=== PATIENT | female | born 1970 ===

== ENCOUNTER 2024-04-29 10:08 | Observation (INO) ==
[2024-04-29] MEDS ORDERED: oxyCODONE SR 10 mg TAB ONE (12:12)
[2024-04-29] MEDS ORDERED: Clindamycin 900 MG/50 **NS BAG 900 MG/50 ML BAG ONE (12:13)
[2024-04-29] MEDS ORDERED: Scopolamine 1 mg/72hr PATCH ONE (12:13)
[2024-04-29] MEDS ORDERED: Ondansetron 4 mg VIAL 2 MG/ML 2 ml VIAL ONE (12:13)
[2024-04-29 12:18] LABS: ABS Basophils 0.1 10^3/uL (0.0-0.1); ABS Eosinophils 0.1 10^3/uL (0.0-0.5); ABS Lymphocytes 1.8 10^3/uL (1.0-4.8); ABS Monocytes 0.6 10^3/uL (0.0-0.9); ABS Neutrophils 5.2 10^3/uL (1.5-7.6); Eosinophil % 0.8 %; Hematocrit 42.6 % (35-45); Hemoglobin 14.6 g/dL (11.5-14.3); Lymphocyte % 22.7 %; Mean Corpuscular Hemoglobin 29.2 pg (27-33); Mean Corpuscular Hgb Conc 34.2 g/dL (31-36); Mean Corpuscular Volume 85.3 fL (80-97); Mean Platelet Volume 8.8 fL (7.5-11.2); Platelet Count 305 10^3/uL (150-450); Red Blood Count 4.99 10^6/uL (3.63-4.92); Red Cell Distribution Width 13.9 % (12-17); White Blood Count 7.8 10^3/uL (3.8-11.8)
[2024-04-29 12:40] LABS: Anion Gap 6 mmol/L (2-16); Blood Urea Nitrogen 12 mg/dL (6-24); CO2 Carbon Dioxide 25 mmol/L (22-32); Calcium 9.1 mg/dL (8.6-10.3); Chloride 107 mmol/L (101-111); Creatinine, Serum 0.68 mg/dL (0.51-0.95); Glucose 84 mg/dL (70-100); Potassium 4.1 mmol/L (3.5-5.0); Sodium 138 mmol/L (135-145); eGFR CKD-EPI 102.8 (>60)
[2024-04-29 12:47] LABS: HCG Pregnancy < 0.60 mIU/mL
[2024-04-29] MEDS ORDERED: Iohexol 350 (CONTRAST) 100 ML PAK IV ONE ×2 (12:57→13:09)
[2024-04-29] MEDS ORDERED: Lidocaine 1% VIAL 10 MG/ML 30 ML VIAL ONE (12:57)
[2024-04-29] MEDS ORDERED: Heparin 2 UNITS/ML IVPREMIX 3,000 UNIT/1,500 ML BAG IV ONE (12:57)
[2024-04-29] MEDS ORDERED: nitroGLYCERIN DRIP 0 MCG/0 ML BTL ONE (13:01)
[2024-04-29] MEDS ORDERED: nitroGLYCERIN DRIP 25,000 MCG/250 ML BTL ONE (13:09)
[2024-04-29] MEDS ORDERED: Midazolam 5 mg/5 ml VIAL 1 mg/ml 5 ml VIAL (5 mg) ONE ×2 (13:09→13:14)
[2024-04-29] MEDS ORDERED: fentaNYL 250 mcg/5 ml 50 MCG/ML 5 ml VIAL (250 MCG) ONE ×2 (13:09→13:14)
[2024-04-29] MEDS ORDERED: Flumazenil 0.5 mg/5 ml 0.1 MG/ML 5 ml VIAL IV PRN (13:21)
[2024-04-29] MEDS ORDERED: Naloxone 0.4 mg VIAL 0.4 mg/ml 1 ml VIAL IV PUSH PRN (13:21)
[2024-04-29] MEDS ORDERED: HYDROmorphone 0.5 MG/0.5 ML SYRINGE ONE ×3 (14:45→15:03)
[2024-04-29] MEDS ORDERED: Prochlorperazine 5 mg/ml 2 ml VIAL (10 mg) ONE (15:05)
[2024-04-29] MEDS ORDERED: HYDROmorphone 1 MG/1 ML SYRINGE ONE ×2 (16:05→16:35)
[2024-04-29] MEDS: fentaNYL 100 mcg/2 ml 50 MCG/ML VIAL IV SLOW PU ONE (17:43)
[2024-04-29] MEDS: Midazolam 10 mg/10 ml VIAL 1 mg/ml 10 ml VIAL (10 mg) IV SLOW PU ONE (17:43)
[2024-04-29] MEDS: Ondansetron 4 mg VIAL 2 MG/ML 2 ml VIAL IV SCH (17:45)
[2024-04-29] MEDS: NS 0.9% 1000 ml BAG 1,000 ML IV SCH (17:45)
[2024-04-29] MEDS ORDERED: HYDROmorphone 1 MG/1 ML SYRINGE IV PRN (18:00)
[2024-04-29 19:29] LABS: INR 1.05 (0.85-1.14)
[2024-04-29] MEDS: Prochlorperazine 5 mg/ml 2 ml VIAL (10 mg) IV PRN (21:07)
[2024-04-30] MEDS ORDERED: HYDROcodone/ACETAMIN 5/325 mg TAB PO PRN (08:17)
[2024-04-30] MEDS: Ketorolac 10 mg TAB (NF) PO SCH (09:26)
== END 2024-04-30 10:35 | disposition home or self-care (01) ==
LOC: CHICATH 10:08 → SSU 10:08
PROVIDERS: ADMIT Radiology Diagnostic Radiology; ATTEND Internal Medicine
PROC: ANG.UFE (2024-04-29 12:15)